=== PATIENT | female | born 1995 | race Caucasian/White ===

== ENCOUNTER 2023-06-27 00:39 | Inpatient (IN) ==
[2023-06-27] MEDS ORDERED: IOPAMIDOL 100 ML BOTTLE IV ONE (00:40)
[2023-06-27] MEDS: morphine 10 MG/ML VIAL IV ONE (01:16)
[2023-06-27] MEDS: DEXAMETHASONE 10 MG/ML VIAL IV ONE (01:16)
[2023-06-27] MEDS: KETOROLAC 30 MG/ML VIAL IV ONE (01:18)
[2023-06-27] MEDS: ONDANSETRON 4 MG/2 ML VIAL IV ONE (01:19)
[2023-06-27] MEDS: LACTATED RINGERS 1,000 ML IV ONE (01:19)
[2023-06-27] MEDS: IPRATROPIUM/ALBUTEROL 3 ML AMPUL.NEB NEB ONE ×2 (01:29→09:00)
[2023-06-27 01:30] LABS: Basophils # (Auto) 0.01 K/mcL (0.00-0.30); Basophils % (Auto) 0.2 % (0.0-2.0); Eosinophils # (Auto) 0 K/mcL (0.00-0.70); Eosinophils % (Auto) 0 % (0.0-7.0); Hematocrit 44.7 % (34.1-44.9); Hemoglobin 16.2 g/dL (11.2-15.7); Lymphocytes # (Auto) 0.37 K/mcL (1.50-4.80); Lymphocytes % (Auto) 7.2 % (15.5-49.0); Mean Cell Volume 92.7 fL (80.0-100.0); Mean Corpuscular HGB Conc 36.2 g/dL (31.0-36.0); Mean Platelet Volume 10.2 fL (8.8-12.5); Monocytes # (Auto) 0.27 K/mcL (0.10-0.90); Monocytes % (Auto) 5.3 % (1.0-12.0); Neutrophils % (Auto) 86.5 % (38.0-78.0); Platelet Count 102 K/mcL (140-440); RBC 4.82 M/mcL (3.59-5.38); Red Cell Distribution Width 11.3 % (11.5-14.5); WBC 5.1 K/mcL (4.5-11.0)
[2023-06-27 01:59] LABS: ALT/SGPT 145 U/L (<40); AST/SGOT 108 U/L (<32); Albumin 4.1 gm/dL (3.2-5.2); Albumin/Globulin Ratio 1.5 (1.0-2.3); Alkaline Phosphatase 79 U/L (39-117); Bilirubin,Total 0.5 mg/dL (0.1-1.0); Blood Urea Nitrogen 5 mg/dL (6-20); Calcium 8.8 mg/dL (8.6-10.4); Carbon Dioxide 24 mmol/L (22-30); Chloride 90 mmol/L (96-108); Globulin 2.8 gm/dL (2.2-3.7); Glomerular Filtration Rate 131; Glucose 154 mg/dL (70-105)
[2023-06-27] MEDS: POTASSIUM CHLORIDE 20 MEQ TABLET PO ONE (02:20)
[2023-06-27] MEDS: PENICILLIN G BENZATHINE IM ONE (02:21)
[2023-06-27] MEDS: HYDROmorphone 1 MG/ML SYRINGE IV ONE (02:22)
[2023-06-27] MEDS: POTASSIUM CHLORIDE 20 MEQ in DEXTROSE 5% IN WATER 250 ML IV ONE ×2 (02:22→08:00)
[2023-06-27] MEDS: cefTRIAXone 1 GM VIAL IV ONE (04:20)
[2023-06-27] MEDS: DOXYCYCLINE HYCLATE 100 MG TABLET.ORL PO ONE (04:30)
[2023-06-27] MEDS: BENZOCAINE ONE 20% 1 SPRAY TOPICAL (04:30)
[2023-06-27] MEDS: HYDROmorphone 0.5 MG/0.5 ML SYRINGE IV PRN (04:55)
[2023-06-27] MEDS: LORazepam 1 MG TABLET SL ONE (07:11)
[2023-06-27] MEDS: POTASSIUM CHLORIDE 20 MEQ in DEXTROSE 5% IN WATER 100 ML IV ONE (07:46)
[2023-06-27] MEDS: MAGNESIUM SULFATE 2 GM/50 ML BAG IV ONE (07:56)
[2023-06-27] MEDS ORDERED: POLYETHYLENE GLYCOL 3350 17 GM PACKET PO PRN (08:18)
[2023-06-27] MEDS ORDERED: guaiFENesin/CODEINE 10 ML UDC PO PRN (08:18)
[2023-06-27] MEDS ORDERED: POTASSIUM CHLORIDE 40 MEQ in DEXTROSE 5% IN WATER 500 ML IV PRN (08:18)
[2023-06-27] MEDS ORDERED: POTASSIUM CHLORIDE 20 MEQ PACKET PO PRN (08:18)
[2023-06-27] MEDS ORDERED: BISACODYL 10 MG SUPP.RECT PR PRN (08:18)
[2023-06-27] MEDS ORDERED: MELATONIN 3 MG TABLET PO PRN (08:18)
[2023-06-27] MEDS ORDERED: ACETAMINOPHEN 325 MG TABLET PO PRN (08:18)
[2023-06-27] MEDS ORDERED: ONDANSETRON 4 MG ODT TABLET SL PRN (08:18)
[2023-06-27] MEDS: PIPERACILLIN SODIUM/TAZOBACTAM 3.375 GM in DEXTROSE 5% IN WATER 50 ML IV SCH ×2 (08:25→08:49)
[2023-06-27] MEDS: 0.9 % SODIUM CHLORIDE 1,000 ML IV SCH (08:25)
[2023-06-27] MEDS: HYDROmorphone 1 MG/ML SYRINGE IV SCH (08:31)
[2023-06-27] MEDS: HYDROcodone/APAP 5/325MG TABLET PO PRN (08:31)
[2023-06-27] MEDS: ONDANSETRON 4 MG/2 ML VIAL IV PRN (08:32)
[2023-06-27] MEDS: BUDESONIDE 0.5 MG/2 ML AMPUL.NEB NEB SCH (08:33)
[2023-06-27 08:51] LABS: HIV1/2 AG/AB 4TH Generation Non-Reactive (Non-Reactive)
[2023-06-27] MEDS: DILTIAZEM 25 MG/5 ML VIAL IV SCH (08:58)
[2023-06-27] MEDS: DILTIAZEM 25 MG/5 ML VIAL IV ONE (09:01)
[2023-06-27] MEDS: DOCUSATE SODIUM 100 MG CAPSULE PO SCH (09:12)
[2023-06-27] MEDS: ENOXAPARIN 40 MG/0.4 ML SYRINGE SQ SCH (09:12)
[2023-06-27] MEDS: MULTIVIT,THER IRON,CA,FA & MIN 1 TABLET PO SCH (09:12)
[2023-06-27] MEDS: LORazepam 2 MG/ML VIAL IV SCH (09:14)
[2023-06-27] MEDS: LORazepam 2 MG/ML VIAL ONE (09:21)
[2023-06-27] MEDS: ALBUTEROL SULFATE 2.5 MG/3 ML NEBULIZER NEB SCH (09:24)
[2023-06-27] MEDS: IPRATROPIUM/ALBUTEROL 3 ML AMPUL.NEB NEB SCH ×2 (09:24→12:28)
[2023-06-27] MEDS: MAGNESIUM SULFATE 2 GM/50 ML BAG IV PRN (09:26)
[2023-06-27] MEDS: morphine 4 MG/ML VIAL IV SCH (10:06)
[2023-06-27] MEDS: morphine 4 MG/ML VIAL ONE (10:06)
[2023-06-27] MEDS: ADENOSINE 3 MG/ML VIAL IV SCH (10:16)
[2023-06-27] MEDS: ADENOSINE 3 MG/ML VIAL IV ONE (10:19)
[2023-06-27] MEDS: PROPOFOL 1,000 MG in PREMIX 1 BAG IV SCH (10:50)
[2023-06-27] MEDS: fentaNYL 100 MCG/2 ML VIAL IV SCH (11:04)
[2023-06-27] MEDS: fentaNYL 2,500 MCG in 0.9 % SODIUM CHLORIDE 200 ML IV SCH (11:08)
[2023-06-27] MEDS ORDERED: HEPARIN/NS 500 ML IV SCH (11:15)
[2023-06-27] MEDS ORDERED: PROPOFOL 1,000 MG in PREMIX 1 BAG IV SCH (11:15)
[2023-06-27] MEDS ORDERED: fentaNYL 2,500 MCG in 0.9 % SODIUM CHLORIDE 200 ML IV SCH (11:15)
[2023-06-27] MEDS: PROPOFOL 100 ML IV ONE ×2 (11:23→15:09)
[2023-06-27] MEDS: fentaNYL 100 MCG/2 ML VIAL ONE (11:23)
[2023-06-27] MEDS ORDERED: VANCOMYCIN PER PHARMACY IV SCH (11:35)
[2023-06-27] MEDS: OSELTAMIVIR PHOSPHATE 75 MG CAPSULE PO SCH (12:00)
[2023-06-27] MEDS: VANCOMYCIN 750 MG in 0.9 % SODIUM CHLORIDE 250 ML IV SCH (12:00)
[2023-06-27] MEDS: FUROSEMIDE 20 MG/2 ML VIAL IV SCH (12:31)
[2023-06-27] MEDS: ACETAMINOPHEN 650 MG/65 ML BAG IV PRN (12:32)
[2023-06-27 13:15] LABS: Amphetamine Screen,Urine None detected; Barbiturate Screen,Urine None detected; Benzodiazepines Screen,Urine None detected; Cannabinoid Screen,Urine Suspect Positive; Cocaine Screen,Urine None detected; Opiate Screen,Urine Suspect Positive; Oxycodone, Urine Screen Suspect Positive; Phencyclidine Screen,Urine None detected
[2023-06-27] MEDS ORDERED: ETOMIDATE 20 MG/10 ML VIAL IV ONE (14:00)
[2023-06-27] MEDS ORDERED: ROCURONIUM 10 MG/ML ML IV ONE (14:00)
[2023-06-27] MEDS: 0.9 % SODIUM CHLORIDE 10 ML SYRINGE IV SCH (14:12)
[2023-06-27] MEDS: PIPERACILLIN SODIUM/TAZOBACTAM 3.375 GM in DEXTROSE 5% IN WATER 100 ML IV SCH (14:12)
[2023-06-27] MEDS ORDERED: SENNOSIDES/DOCUSATE SODIUM 1 TAB TABLET PO SCH (21:00)
[2023-06-27] MEDS ORDERED: CHLORHEXIDINE GLUCONATE 15 ML UDC SWABMOUTH SCH ×2 (21:00)
[2023-06-27] MEDS ORDERED: FAMOTIDINE/PF 20 MG/2 ML VIAL IV SCH (21:00)
[2023-07-03 14:10] LABS: Opiate Screen Positive ng/mL (Cutoff=300)
== END 2023-06-27 15:30 | disposition short-term general hospital (02) | DRG 208 ==
LOC: ED 00:39 → ICU 08:08
PROVIDERS: ADMIT Internal Medicine; ATTEND Internal Medicine